=== PATIENT | male | born 1935 | race Caucasian/White ===

== ENCOUNTER 2016-10-08 08:05 | Day surgery (SDC) | payer MEDICARE, MEDICAID ==
[~2016-10-08] VITALS: Ht 172.7 cm; Wt 110.7 kg
== END 2016-10-08 12:33 | disposition home or self-care (01) ==
LOC: SSS 08:05 → PTH.S 10:00 → EDSTATUS 10:00 → RAD.S 10:00 → SSS 12:33
DX: M25.78 Osteophyte, vertebrae (principal); M50.822 Other cervical disc disorders at C5-C6 level; I10 Essential (primary) hypertension; K21.9 Gastro-esophageal reflux disease without esophagitis; E11.9 Type 2 diabetes mellitus without complications; M19.90 Unspecified osteoarthritis, unspecified site; Z98.890 Other specified postprocedural states